=== PATIENT | male | born 2000 | race Two or more races ===

== ENCOUNTER 2023-12-05 17:39 | Emergency (ER) | payer MEDICAID ==
[~2023-12-05] VITALS: Ht 172.7 cm; Wt 68.0 kg
[2023-12-05 17:56] VITALS: BP 126/81; PULSE 83; RESP 16; TEMP 98.1; O2SAT 98
[2023-12-05 18:26] LABS: BASOPHILS % 0.5 % (0.0-2.0); EOSINOPHILS % 1.3 % (0.0-5.0); HEMATOCRIT. 43.3 % (42.0-52.0); HEMOGLOBIN. 14.5 g/dL (14.0-18.0); LYMPHOCYTES % 31.1 % (20.0-50.0); MEAN CORPUSCULAR HEMOGLOBIN 29.7 pg (28.0-32.0); MEAN CORPUSCULAR HGB CONC 33.4 g/dL (31.0-37.0); MEAN CORPUSCULAR VOLUME 88.8 fL (80.0-94.0); MEAN PLATELET VOLUME 8.8 fl (7.4-10.4); MONOCYTES % 8.7 % (2.0-8.0); NEUTROPHILS % 58.4 % (40.0-76.0); PLATELET 274 x1000/uL (130-400); RED BLOOD CELL COUNT 4.88 mill/uL (4.7-6.1); RED CELL DISTRIBUTION WIDTH 13.2 % (11.6-14.6); WHITE BLOOD COUNT 8.9 x1000/uL (4.5-11.0)
[2023-12-05 18:32] LABS: CHLORIDE 105 mEq/L (98-107); POTASSIUM 4.1 mEq/L (3.5-5.1); SODIUM 139 mEq/L (136-145)
[2023-12-05 18:33] LABS: CARBON DIOXIDE 28 mEq/L (21-32)
[2023-12-05 18:34] LABS: CALCIUM 9.7 mg/dL (8.7-10.4)
[2023-12-05 18:38] LABS: CREATININE 1.3 mg/dL (0.6-1.3); GLUCOSE 87 mg/dL (70-105); UREA NITROGEN BLOOD 15 mg/dL (9-23)
[2023-12-06] MEDS ORDERED: CEFP100T8 MT (02:19)
[2023-12-06] MEDS ORDERED: TAMS-11 PO (02:19)
== END 2023-12-05 19:30 | disposition left against medical advice (07) ==
LOC: ER 17:39
DX: N50.811 Right testicular pain (principal); F19.90 Other psychoactive substance use, unspecified, uncomplicated; Z87.442 Personal history of urinary calculi; Z98.890 Other specified postprocedural states
CPT/HCPCS: 36415; 76870; 80048; 85025; 93976; 99284

== ENCOUNTER 2023-12-05 21:46 | Emergency (ER) | payer MEDICAID ==
[~2023-12-05] VITALS: Ht 170.2 cm; Wt 73.0 kg
[2023-12-05 21:53] VITALS: BP 126/81; PULSE 18; RESP 18; TEMP 98.1; O2SAT 99
[2023-12-05 22:16] LABS: CLARITY URINE CLEAR (CLEAR); COLOR URINE YELLOW (YELLOW); GLUCOSE URINE NEGATIVE (NEGATIVE); KETONES URINE NEGATIVE (NEGATIVE); LEUKOCYTE ESTERASE URINE NEGATIVE (NEGATIVE); NITRITE URINE NEGATIVE (NEGATIVE); OCCULT BLOOD URINE 3+ (NEGATIVE); PROTEIN URINE TRACE (NEGATIVE); UROBILINOGEN URINE 0.2 E.U./dL (0.2-1.0)
[2023-12-05 22:41] LABS: BACTERIA URINE 1+; SQUAMOUS EPITHELIAL CELL URINE 2+ /lpf (RARE/1+)
[2023-12-05 22:42] LABS: HYALINE CASTS URINE 0-5 /lpf
[2023-12-06] MEDS ORDERED: CEFP100T8 MT (02:19)
[2023-12-06] MEDS ORDERED: TAMS-11 PO (02:19)
== END 2023-12-06 03:11 | disposition home or self-care (01) ==
LOC: ER 21:46
DX: N20.0 Calculus of kidney (principal); Z98.890 Other specified postprocedural states; Z87.442 Personal history of urinary calculi
CPT/HCPCS: 74176; 81003; 99284